=== PATIENT | female | born 1970 | race Caucasian/White ===

== ENCOUNTER 2019-12-06 11:12 | Inpatient (IN) | payer OTHER ==
[~2019-12-06] VITALS: Ht 157.5 cm; Wt 79.3 kg
[2019-12-06] MEDS ORDERED: ASPirin 81 mg TAB PO ONE (11:30)
[2019-12-06] MEDS ORDERED: SODIUM CHLORIDE 0.9% 1,000 ML IV ONE (11:30)
[2019-12-06] MEDS ORDERED: LORazepam 0.5 MG TAB PO ONE (11:30)
[2019-12-06 12:18] LABS: Basophils # (auto) 0 10 ^3/uL (0-0.2); Basophils % (auto) 0.5 % (0.0-2.0); Eosinophils # (auto) 0.2 10 ^3/uL (0-0.8); Eosinophils % (auto) 2.8 % (0.0-7.0); Hematocrit 40.6 % (36.0-46.0); Hemoglobin 13.6 g/dL (12.2-16.2); Lymphocytes # (auto) 1.5 10 ^3/uL (0.4-5.4); Lymphocytes % (auto) 21.5 % (10.0-50.0); Mean Corpuscular Hgb Conc. 33.5 g/dL (32.0-36.0); Mean Corpuscular Volume 86.7 fL (80.0-100.0); Monocytes # (auto) 0.5 10 ^3/uL (0-1.3); Monocytes % (auto) 6.9 % (0.0-12.0); Neutrophils # (auto) 4.7 10 ^3/uL (1.6-8.6); Neutrophils % (auto) 68.3 % (37.0-80.0); Nucleated Red Blood Cells % 0.1 %; Platelet Count (auto) 376 10^3/uL (140-450); Red Blood Cells 4.69 10^6/uL (4.0-5.20); Red Cell Distribution Width 14.3 % (11.8-14.3); White Blood Cell 6.9 10^3/uL (4.4-10.8)
[2019-12-06 12:39] LABS: Alanine Aminotransferase 54 U/L (13-56); Albumin 3.8 g/dL (3.4-5.0); Anion Gap 5 (5-15); Aspartate Aminotransferase 35 U/L (15-37); BUN/Creatinine Ratio 20.5; Blood Urea Nitrogen 16 mg/dL (7-18); Calcium 9.7 mg/dL (8.5-10.1); Carbon Dioxide 28 mmol/L (21-32); Chloride 105 mmol/L (98-107); GFR African American 101 mL/min; GFR Non-African American 83 mL/min; Glucose 96 mg/dL (74-106); Potassium 4.2 mmol/L (3.5-5.1); Sodium 138 mmol/L (136-145)
[2019-12-06 12:44] LABS: Alkaline Phosphatase 114 U/L (45-117); Bilirubin, Total 0.3 mg/dL (0.2-1.0); Total Protein 7.5 g/dL (6.4-8.2)
[2019-12-06] MEDS ORDERED: MORPHINE SULFATE 4 MG/ML SYR/VIAL IV ONE (13:30)
[2019-12-06] MEDS ORDERED: ONDANSETRON HCL 4 MG/2 ML VIAL IV ONE (13:30)
[2019-12-06 14:04] LABS: Urine Bacteria MOD /hpf (None Seen); Urine Blood Negative /uL (Negative); Urine Specific Gravity 1.006 (1.001-1.035); Urine WBC 2 /hpf (0 - 5)
[2019-12-06] MEDS ORDERED: NITROGLYCERIN 0.4 MG SL TAB SL PRN (14:30)
[2019-12-06] MEDS ORDERED: ONDANSETRON HCL 4 MG/2 ML VIAL IV PRN (14:30)
[2019-12-06] MEDS ORDERED: MORPHINE SULF INJ 2 MG/ML SYRINGE 1ML IV PRN ×3 (14:30→14:45)
[2019-12-06] MEDS: ALPRAZolam 0.25 MG TAB PO PRN ×2 (16:16→21:46)
--- NOTE | 2019-12-06 17:35 | NUR ---
Telemetry admit from ER JAKE,LILIAN MINER admitted to Telemetry unit after SBAR received. Patient oriented to Winsome Acevedo, primary RN, unit, room, bed, and unit policies regarding patient care and visiting hours. Patient now on continuous telemetry monitoring, tele box # 55 and telemetry reading on arrival to unit is sinus rhythm 67. Patient weighed by bedscale and encouraged to call if they need something. All questions and concerns addressed, patient verbalized understanding.
[2019-12-06] MEDS ORDERED: OMEP-260 PO (17:48)
[2019-12-06] MEDS ORDERED: ERGO1CAP12 PO (17:48)
[2019-12-06] MEDS ORDERED: SERT100T PO (17:48)
[2019-12-06] MEDS ORDERED: SIMV-8 PO (17:48)
[2019-12-06] MEDS ORDERED: EST0625T PO (17:48)
[2019-12-06] MEDS ORDERED: FOLI1TAB6 PO (17:48)
[2019-12-06] MEDS ORDERED: CYAN100T7 PO (17:48)
[2019-12-06] MEDS ORDERED: ZOLP10TA PO (17:48)
[2019-12-06] MEDS ORDERED: ALPR0.25 PO (17:48)
--- NOTE | 2019-12-06 19:03 | NUR ---
Received patient waiting on dinner tray. Follow up done. Cardiac diet provided. Noted alert and oriented and ambulatory able to do ADLs by herself pretty much. Verbally responsive, denied chest pain at this time. Will cont to monitor.
[2019-12-06] MEDS: METOPROLOL TARTRATE 25 MG TAB PO SCH (21:28)
[2019-12-06] MEDS: ATORVASTATIN 20 MG TAB PO SCH (21:32)
[2019-12-06] MEDS: MORPHINE SULF INJ 2 MG/ML SYRINGE 1ML IV PRN (21:47)
[2019-12-06 22:00] VITALS: BP 111/59
--- NOTE | 2019-12-06 22:10 | NUR ---
Patient c/o chest pain 7/10 scale. Requested pain medication but did not want anything else done. She just wanted to sleep as she felt tired. VS stable. Running on NSR continuously, monitored.
--- NOTE | 2019-12-06 22:40 | NUR ---
Patient expressed relief from her chest pain. 1-2/10 scale. Provided adequate rest.
[2019-12-07 05:00] VITALS: BP 108/59
[2019-12-07] MEDS: MORPHINE SULF INJ 2 MG/ML SYRINGE 1ML IV PRN ×3 (05:12→09:27)
--- NOTE | 2019-12-07 05:20 | NUR ---
Patient c/o chest pain 09/09, requested morphine. This time was convinced to have EKG done. Running sinus with reg rate and rhythm. NTG administered as well. Pt is compliant. VS stable at this time. Skin warm and dry with good cap refill. Respirations even and unlabored. Able to complete sentences. Will monitor.
[2019-12-07 09:00] VITALS: BP 145/75
[2019-12-07] MEDS: METOPROLOL TARTRATE 25 MG TAB PO SCH ×2 (09:28→22:00)
[2019-12-07] MEDS: ASPirin-EC 81 mg tab PO SCH (09:28)
--- NOTE | 2019-12-07 09:31 | NUR ---
CP relieved completely after morphine administration. N distress or sob noted. Patient instructed to call for assistance as needed she verbalized understanding. Cont to monitor
[2019-12-07] MEDS: FAMOTIDINE 20 MG TAB PO SCH (12:31)
[2019-12-07] MEDS: ACETAMINOPHEN 325 MG TAB PO PRN ×2 (12:43→19:52)
[2019-12-07 13:00] VITALS: BP 132/74
[2019-12-07 17:21] VITALS: BP 130/65
[2019-12-07 18:22] LABS: Alcohol, Urine < 3.0 mg/dL (0-10); Amphetamine Screen, Urine NEGATIVE (NEGATIVE); Barbiturate Scree,Urine NEGATIVE (NEGATIVE); Benzodiazephine Screen, Urine POSITIVE (NEGATIVE); Cannabinoid Screen, Urine NEGATIVE (NEGATIVE); Cocaine Screen, Urine NEGATIVE (NEGATIVE); Opiate Scree,Urine NEGATIVE (NEGATIVE); Phencyclidine Screen, Urine NEGATIVE (NEGATIVE)
--- NOTE | 2019-12-07 19:19 | NUR ---
Patient care endorse to Radha rn, pt resting comfortably in bed no acute distress or sob noted. Call light within reach
--- NOTE | 2019-12-07 19:26 | NUR ---
Received patient doing half bath in the bathroom, requested for fresh gown, provided. Assured to be help if she needs it. Denied pain at this time.
[2019-12-07 22:00] VITALS: BP 108/58
[2019-12-07] MEDS: ATORVASTATIN 20 MG TAB PO SCH (22:00)
[2019-12-08 05:00] VITALS: BP 100/55
[2019-12-08] MEDS ORDERED: ADENOSINE 71 MG in GIVE UN-DILUTED 0 ML IV STA (08:09)
[2019-12-08 09:00] VITALS: BP 118/70
[2019-12-08] MEDS ORDERED: cloNIDine HCL 0.1 MG TAB PO ONE (09:15)
[2019-12-08] MEDS: ASPirin-EC 81 mg tab PO SCH (11:40)
[2019-12-08] MEDS: METOPROLOL TARTRATE 25 MG TAB PO SCH ×2 (11:40→21:26)
[2019-12-08] MEDS: FAMOTIDINE 20 MG TAB PO SCH (11:40)
--- NOTE | 2019-12-08 11:40 | NUR ---
Patient back from stress lab, medicated with morning meds at this time. VSS. No acute distress or sob noted. Patient denies CP. Cont care
[2019-12-08 13:00] VITALS: BP 93/58
[2019-12-08 17:00] VITALS: BP 127/69
--- NOTE | 2019-12-08 19:00 | NUR ---
Patient care endorsed endorsed care to Radha carty. Awaiting report for Cardiolite from Dr Owens. Per MD Fierro is cardiolite is neg he will see patient by [phone] tomorrow and dc home. No acute distress or sob noted call light within reach.
[2019-12-08] MEDS: ACETAMINOPHEN 325 MG TAB PO PRN (21:23)
[2019-12-08] MEDS: ATORVASTATIN 20 MG TAB PO SCH (21:25)
[2019-12-08] MEDS: ALPRAZolam 0.25 MG TAB PO PRN (21:30)
[2019-12-08 22:00] VITALS: BP 129/54
[2019-12-09 05:00] VITALS: BP 116/60
[2019-12-09 06:00] VITALS: BP 116/60
[2019-12-09] MEDS: ASPirin-EC 81 mg tab PO SCH (10:15)
[2019-12-09] MEDS: METOPROLOL TARTRATE 25 MG TAB PO SCH (10:16)
[2019-12-09] MEDS: FAMOTIDINE 20 MG TAB PO SCH (10:16)
--- NOTE | 2019-12-09 13:03 | NUR ---
Discharge Contacted Dr. Owens who said the patient is cleared for D/C from Cardio standpoint. Stress test negative. Went over discharge paperwork with patient. Answered all questions. Removed IV intact, no problems. Removed Tele box and sent to ICU per hospital protocol. Patient left with all personal belongings in private vehicle.
== END 2019-12-09 12:47 | disposition home or self-care (01) | DRG 313 ==
LOC: EDBD 11:12 → ER 11:12 → TELE-WESTW 11:13
PROVIDERS: ADMIT Nurse Practitioner Acute Care; ATTEND Family Medicine
DX: R07.9 Chest pain, unspecified (principal); E78.5 Hyperlipidemia, unspecified; F41.9 Anxiety disorder, unspecified; R73.03 Prediabetes; E78.00 Pure hypercholesterolemia, unspecified; Z87.891 Personal history of nicotine dependence; Z88.1 Allergy status to other antibiotic agents; Z98.51 Tubal ligation status; Z88.7 Allergy status to serum and vaccine
CPT/HCPCS: 36415; 71045; 78452; 80053; 80307; 81001; 84484; 85025; 86141; 93005; 93017; 93306; 96361; 96374; 96375; G0378; J0153; J2405

== ENCOUNTER 2020-06-06 11:55 | Emergency (ER) | payer OTHER ==
[~2020-06-06] VITALS: Ht 149.9 cm; Wt 81.6 kg
[~2020-06-06 11:55] MED LIST: ALPR0.25 PO; CYAN100T7 PO; ERGO1CAP12 PO; EST0625T PO; FOLI1TAB6 PO; OMEP-260 PO; SERT100T PO; SIMV-8 PO; ZOLP10TA PO
[2020-06-06 12:00] VITALS: BP 173/83
[2020-06-06] MEDS ORDERED: SODIUM CHLORIDE 0.9% 1,000 ML IV ONE (12:15)
[2020-06-06 12:47] LABS: Basophils # (auto) 0 10 ^3/uL (0-0.2); Basophils % (auto) 0.6 % (0.0-2.0); Eosinophils # (auto) 0.1 10 ^3/uL (0-0.8); Eosinophils % (auto) 1.3 % (0.0-7.0); Hematocrit 40.1 % (36.0-46.0); Hemoglobin 13.9 g/dL (12.2-16.2); Lymphocytes # (auto) 0.9 10 ^3/uL (0.4-5.4); Mean Corpuscular Hemoglobin 29.5 pg (28.0-32.0); Mean Corpuscular Hgb Conc. 34.7 g/dL (32.0-36.0); Monocytes # (auto) 0.6 10 ^3/uL (0-1.3); Monocytes % (auto) 9.1 % (0.0-12.0); Neutrophils # (auto) 4.8 10 ^3/uL (1.6-8.6); Nucleated Red Blood Cells % 0.1 %; Red Blood Cells 4.72 10^6/uL (4.0-5.20); Red Cell Distribution Width 13.4 % (11.8-14.3); White Blood Cell 6.4 10^3/uL (4.4-10.8)
[2020-06-06 13:01] LABS: Albumin 4.3 g/dL (3.4-5.0); Anion Gap 11 (5-15); Blood Urea Nitrogen 12 mg/dL (7-18); Calcium 9.8 mg/dL (8.5-10.1); Carbon Dioxide 21 mmol/L (21-32); Chloride 94 mmol/L (98-107); Glucose 108 mg/dL (74-106); Potassium 4.5 mmol/L (3.5-5.1); Sodium 126 mmol/L (136-145)
[2020-06-06 13:06] LABS: Alanine Aminotransferase 22 U/L (13-56); Alkaline Phosphatase 169 U/L (45-117); Aspartate Aminotransferase 18 U/L (15-37); Bilirubin, Total 0.4 mg/dL (0.2-1.0); GFR African American 136 mL/min; GFR Non-African American 112 mL/min; Total Protein 7.9 g/dL (6.4-8.2)
[2020-06-06 14:14] LABS: Urine Bacteria FEW /hpf (None Seen); Urine Blood Negative /uL (Negative); Urine Specific Gravity 1.013 (1.001-1.035); Urine WBC 2 /hpf (0 - 5)
== END 2020-06-06 13:46 | disposition home or self-care (01) ==
LOC: EDBD 11:55 → ER 11:55
DX: I10 Essential (primary) hypertension (principal); R55 Syncope and collapse; F41.9 Anxiety disorder, unspecified; Z79.899 Other long term (current) drug therapy; Z88.8 Allergy status to other drugs, medicaments and biological substances
CPT/HCPCS: 36415; 70450; 71045; 80053; 81001; 84484; 85025; 93005; 96360; 99285; J7030